=== PATIENT | female | born 1935 | race Caucasian/White ===

== ENCOUNTER 2016-07-05 14:48 | Observation (INO) | payer MEDICAID ==
[~2016-07-05] VITALS: Ht 170.2 cm; Wt 80.5 kg
[2016-07-05 14:50] VITALS: BP 179/86; PULSE 70; RESP 24; O2SAT 100
[2016-07-05] MEDS ORDERED: SODIUM CHLOR 0.9% 1000 ML INJ 1,000 ML IV SCH ×2 (15:05→18:15)
--- NOTE | 2016-07-05 15:05 | PD ---
HPI Chief Complaint: Abdominal Pain Time Seen by Provider: 15:05 Travel History International Travel<30 days: No Contact w/Intl Traveler<30days: No Traveled to known affect area: No History of Present Illness HPI 81-year-old female presented to emergency department with family for sudden onset generalized abdominal pain, cramping, nausea, and vomiting. Patient only speaks Turkmen but refuses computer college coach, and prefers to use family. Patient felt well yesterday but suddenly developed lower abdominal pain which is gradually worsened through the day. Patient has no history of abdominal surgery. She does state that she has a right sided femoral hernia which she's had for years. She does admit to burning with urination and frequency. Patient denies kidney stone history. She's had to bowel movements today, but denies diarrhea. Patient has nausea and vomiting 2. She denies chest pain, back pain, or upper respiratory symptoms. She has no known drug allergies. [facility] Social History Alcohol Use: Yes Tobacco Use: Yes Substance Use: No Allergies-Medications (Allergen,Severity, Reaction): Coded Allergies: No Known Allergies (Unverified , 07/05/16) Reported Meds & Prescriptions Reported Meds & Active Scripts Active No Active Prescriptions or Reported Medications Review of Systems ROS Limitations: Language Barrier General / Constitutional: Positive: Chills, No: Fever Eyes: No: Visual changes HENT: No: Headaches Cardiovascular: No: Chest Pain or Discomfort Respiratory: No: Shortness of Breath Gastrointestinal: Positive: Nausea, Vomiting, Abdominal Pain, Loss of Appetite (see history present illness) Genitourinary: Positive: Dysuria Musculoskeletal: No: Pain Skin: No Rash Neurologic: No: Weakness Psychiatric: No: Depression Endocrine: No: Polydipsia Hematologic/Lymphatic: No: Easy Bruising Physical Exam Narrative GENERAL: Patient is in moderate distress. SKIN: Warm and dry. Poor pallor. Normal turgor. HEAD: Atraumatic. Normocephalic. EYES: Pupils equal and round. No scleral icterus. No injection or drainage. ENT: No nasal bleeding or discharge. Mucous membranes pink and moist. Pharynx is normal. NECK: Trachea midline. No JVD. Supple and nontender. CARDIOVASCULAR: Regular rate and rhythm. RESPIRATORY: No accessory muscle use. Clear to auscultation. Breath sounds equal bilaterally. GASTROINTESTINAL: Abdomen soft, moderate diffuse tenderness in the lower suprapubic region, nondistended. Mild guarding. Positive peritoneal signs. Hepatic and splenic margins not palpable. I do not feel a double hernia on exam. MUSCULOSKELETAL: Extremities without clubbing, cyanosis, or edema. No obvious deformities. NEUROLOGICAL: Awake and alert. No obvious cranial nerve deficits. Motor grossly within normal limits. Five out of 5 muscle strength in the arms and legs. Normal speech. PSYCHIATRIC: Appropriate mood and affect; insight and judgment normal. Data Data Last Documented VS Vital Signs Date Time Temp Pulse Resp B/P Pulse Ox O2 Delivery O2 Flow Rate FiO2 07/05/16 16:10 98 Room Air 07/05/16 14:50 70 24 179/86 Orders Complete Blood Count With Diff (07/05/16 15:05) Comprehensive Metabolic Panel (07/05/16 15:05) Lipase (07/05/16 15:05) Lactic Acid (07/05/16 15:05) Prothrombin Time / Inr (Pt) (07/05/16 15:05) Act Partial Throm Time (Ptt) (07/05/16 15:05) Urinalysis - C+S If Indicated (07/05/16 15:05) Ct Abd/Pel W Iv Contrast(Rout) (07/05/16 15:05) Iv Access Insert/Monitor (07/05/16 15:05) Ecg Monitoring (07/05/16 15:05) Oximetry (07/05/16 15:05) NPO (07/05/16 15:05) Morphine Inj (Morphine Inj) (07/05/16 15:15) Ondansetron Inj (Zofran Inj) (07/05/16 15:15) Sodium Chlor 0.9% 1000 Ml Inj (Ns 1000 M (07/05/16 15:05) Sodium Chloride 0.9% Flush (Ns Flush) (07/05/16 15:15) Electrocardiogram (07/05/16 15:05) Cath For Specimen (07/05/16 15:05) Iohexol 350 Inj (Omnipaque 350 Inj) (07/05/16 17:17) Ondansetron Inj (Zofran Inj) (07/05/16 17:30) Hydromorphone Pf Inj (Dilaudid Pf Inj) (07/05/16 17:30) Morphine Inj (Morphine Inj) (07/05/16 18:00) Piperacil-Tazo 3.375 Gm Premix (Zosyn 3. (07/05/16 18:15) Sodium Chlor 0.9% 1000 Ml Inj (Ns 1000 M (07/05/16 18:15) Admit Order (Ed Use Only) (07/05/16 ) Labs Laboratory Tests Test 07/05/16 15:20 White Blood Count 9.7 TH/MM3 Red Blood Count 4.75 MIL/MM3 Hemoglobin 13.6 GM/DL Hematocrit 41.9 % Mean Corpuscular Volume 88.2 FL Mean Corpuscular Hemoglobin 28.7 PG Mean Corpuscular Hemoglobin 32.6 % Concent Red Cell Distribution Width 14.4 % Platelet Count 134 TH/MM3 Mean Platelet Volume 10.0 FL Neutrophils (%) (Auto) 91.0 % Lymphocytes (%) (Auto) 5.5 % Monocytes (%) (Auto) 3.2 % Eosinophils (%) (Auto) 0.1 % Basophils (%) (Auto) 0.2 % Neutrophils # (Auto) 8.8 TH/MM3 Lymphocytes # (Auto) 0.5 TH/MM3 Monocytes # (Auto) 0.3 TH/MM3 Eosinophils # (Auto) 0.0 TH/MM3 Basophils # (Auto) 0.0 TH/MM3 CBC Comment DIFF FINAL Differential Comment Prothrombin Time 10.7 SEC Prothromb Time International 1.0 RATIO Ratio Activated Partial 24.3 SEC Thromboplast Time Urine Color YELLOW Urine Turbidity CLEAR Urine pH 5.0 Urine Specific [place] 1.020 Urine Protein TRACE mg/dL Urine Glucose (UA) NEG mg/dL Urine Ketones 40 mg/dL Urine Occult Blood MOD Urine Nitrite NEG Urine Bilirubin NEG Urine Urobilinogen LESS THAN 2.0 MG/DL Urine Leukocyte Esterase SMALL Urine RBC 131 /hpf Urine WBC 4 /hpf Urine Squamous Epithelial 1 /hpf Cells Urine Mucus FEW /lpf Microscopic Urinalysis Comment CULT NOT INDICATED Sodium Level 142 MEQ/L Potassium Level 4.1 MEQ/L Chloride Level 107 MEQ/L Carbon Dioxide Level 24.2 MEQ/L Anion Gap 11 MEQ/L Blood Urea Nitrogen 30 MG/DL Creatinine 1.09 MG/DL Estimat Glomerular Filtration 48 ML/MIN Rate Random Glucose 161 MG/DL Lactic Acid Level 2.2 mmol/L Calcium Level 9.8 MG/DL Total Bilirubin 0.5 MG/DL Aspartate Amino Transf 17 U/L (AST/SGOT) Alanine Aminotransferase 19 U/L (ALT/SGPT) Alkaline Phosphatase 73 U/L Total Protein 7.7 GM/DL Albumin 4.6 GM/DL Lipase 145 U/L MDM Medical Decision Making Medical Screen Exam Complete: Yes Emergency Medical Condition: Yes Differential Diagnosis Abdominal pain. Nausea vomiting. Urinary tract infection. Renal colic. Appendicitis. Diverticulitis. Incarcerated hernia. Narrative Course Patient is in pain but medically stable at time of exam. Labs ordered including CBC, CMP, PT PTT and INR lactic acid, lipase, urinalysis IV access is obtained patient is given 4 mg Zofran as well as 4 mg morphine IV. Patient is ordered 1000 mL normal saline bolus. CT of the abdomen with IV contrast is ordered. Care the patient was assumed at [address] Garcia. Patient had elevated lactic acid, and was admitted. Please see his note. Admitting Information Admitting Physician Requests: Admit Scripts No Active Prescriptions or Reported Meds Condition: Stable Mohinder Trevino Jul 05, 2016 15:05
[2016-07-05] MEDS ORDERED: SODIUM CHLORIDE 0.9% FLUSH 10 ML FLUSH IV FLUSH PRN ×2 (15:15→18:30)
[2016-07-05] MEDS ORDERED: ONDANSETRON HCL 4 MG/2 ML VIAL IVP ONE (15:15)
[2016-07-05] MEDS ORDERED: MORPHINE SULFATE 4 MG/ML INJ IV PUSH ONE ×2 (15:15→18:00)
[2016-07-05 16:04] LABS: AUTOMATED NEUTROPHIL # 8.8 TH/MM3 (1.8-7.7); BASOPHIL % 0.2 % (0.0-2.0); EOSINOPHIL % 0.1 % (0.0-4.0); HEMATOCRIT 41.9 % (35.0-46.0); HEMO FLAGS DIFF FINAL; LYMPH % 5.5 % (9.0-44.0); LYMPHOCYTE # 0.5 TH/MM3 (1.0-4.8); MEAN CELL VOLUME 88.2 FL (80.0-100.0); MEAN CORPUSCULAR HEMOGLOBIN 28.7 PG (27.0-34.0); MEAN CORPUSCULAR HGB CONC 32.6 % (32.0-36.0); MONO % 3.2 % (0.0-8.0); PLATELET COUNT 134 TH/MM3 (150-450); RED BLOOD COUNT 4.75 MIL/MM3 (4.00-5.30); RED CELL DISTRIBUTION WIDTH 14.4 % (11.6-17.2); WHITE BLOOD COUNT 9.7 TH/MM3 (4.0-11.0)
[2016-07-05 16:07] LABS: BLOOD, URINE MOD (NEG); COMMENT (UR) CULT NOT INDICATED; CULTURE IF INDICATED CULT NOT INDICATED; GLUCOSE,URINE NEG (NEG); KETONE, URINE 40 mg/dL (NEG); MUCUS URINE FEW /lpf (OCC); NITRITE,URINE NEG (NEG); SQUAMOUS EPITHELIAL CELL URINE 1 /hpf (0-5); URINE COLOR YELLOW (YELLW/STRAW)
[2016-07-05 16:10] VITALS: O2SAT 98
[2016-07-05 16:13] LABS: APTT (PATIENT) 24.3 SEC (24.3-30.1); PROTHROMBIN TIME - PATIENT 10.7 SEC (9.8-11.6)
[2016-07-05 16:27] LABS: ALKALINE PHOSPHATASE 73 U/L (45-117); TOTAL BILIRUBIN ADULT 0.5 MG/DL (0.2-1.0)
[2016-07-05 16:37] LABS: ALT (GPT) 19 U/L (10-53); ANION GAP 11 MEQ/L (5-15); AST (GOT) 17 U/L (15-37); BICARBONATE 24.2 MEQ/L (21.0-32.0); BLOOD UREA NITROGEN 30 MG/DL (7-18); CHLORIDE 107 MEQ/L (98-107); GLOMERULAR FILTRATION RATE 48 ML/MIN (>89); POTASSIUM 4.1 MEQ/L (3.5-5.1); SODIUM (NA) 142 MEQ/L (136-145)
[2016-07-05] MEDS ORDERED: IOHEXOL 350 MG/ML 10 ML VIAL (for RAD DIAG) IV ONE (17:17)
[2016-07-05] MEDS ORDERED: ONDANSETRON HCL 4 MG/2 ML VIAL IV PUSH ONE (17:30)
[2016-07-05] MEDS ORDERED: HYDROmorphone HCL PF 1 MG/ML VIAL IV PUSH ONE (17:30)
--- NOTE | 2016-07-05 17:30 | RADRPT ---
EXAM DATE/TIME: 07/05/2016 17:14 [place] COMPARISON: No previous studies available for comparison. INDICATIONS : Abdomen pain. IV CONTRAST: 95 cc Omnipaque 350 (iohexol) IV ORAL CONTRAST: No oral contrast ingested. RADIATION DOSE: 9.96 CTDIvol (mGy) MEDICAL HISTORY : None SURGICAL HISTORY : None. ENCOUNTER: Initial ACUITY: 1 day PAIN SCALE: 5/10 LOCATION: Bilateral abdomen. TECHNIQUE: Volumetric scanning of the abdomen and pelvis was performed. Using automated exposure control and ad justment of the mA and/or kV according to patient size, radiation dose was kept as low as reasonably achievable to obtain optimal diagnostic quality images. FINDINGS: Abdomen CT: Approximately 1.3 cm stone is present in the right lower pole kidney. There are cysts in both kidneys some of which are parapelvic, however there is also some degree of pelvocaliectasis bilaterally diff icult to accurately assess due to presence of parapelvic cysts. The liver, spleen, pancreas, adrenals are unremarkable. There is no evidence for any appreciable pathological adenopathy, free fluid, or b owel obstruction. Chronic vascular calcifications are seen most likely due to the atherosclerotic ch anges involving the aorta, and iliac arteries without any significant aneurysmal dilatations for tech nique. Slight scarring and/or atelectasis is seen in bilateral visualized lungs. There is old fractur e of L1 transverse process. Pelvic CT: There is no evidence for mass, abscess formation, or any significant adenopathy within the pelvis. Th ere are gas bubbles inside the vagina possibly introduced from the outside. Total hip arthroplasty is seen on the left and there is an approximate 2.5 cm dense area in the region of the obturator international trade specialist us may be extruded cement. There is moderate amount of stool in the colon. There are degenerative olya nges and possible disc bulge involving lower lumbosacral spine mainly at L4-5 and L5-S1 not adequatel y characterized. There are numerous diverticuli within the colon mainly the sigmoid colon without sig ns of diverticulitis for technique. IMPRESSION: 1. Right lower pole renal stone. 2. There are cysts in both kidneys some of which are parapelvic and is also prominence of the renal p kimberly bilaterally of uncertain nature and chronicity difficult to accurately characterize due to pres ence of parapelvic cysts. 3. Colonic diverticuli and there is gas bubbles in the vagina possibly introduced from the outside. Ana Martinez MD on July 05, 2016 at 17:22 Board Certified Radiologist. This report was verified electronically.
--- NOTE | 2016-07-05 18:04 | EKG ---
Date Performed: 07/05/2016 Time Performed: 16:22:11 PTAGE: 81 years EKG: Sinus rhythm WITH FIRST DEGREE AV BLOCK WITH OCCASIONAL VENTRICULAR PREMATURE COMPLEXES ABNORMAL ECG COMPARED TO PRIOR ELECTROCARDIOGRAM, Probably no significant change although 2 leads on prior electrocardiogram h ad marked artifact and cannot be compared. PREVIOUS TRACING : 07/05/2016 16.13 DOCTOR: Rodolfo Willingham Interpretating Date/Time 07/07/2016 07:26:37
[2016-07-05] MEDS ORDERED: PIPERACIL-TAZO 3.375 GM PREMIX 50 ML IV ONE (18:15)
[2016-07-05] MEDS ORDERED: KETOROLAC TROMETHAMINE 60 MG/2 ML (IM) VIAL IM ONE (18:30)
[2016-07-05] MEDS ORDERED: MORPHINE SULFATE 4 MG/ML INJ IV PUSH PRN (18:30)
[2016-07-05] MEDS ORDERED: ACETAMINOPHEN 325 MG TAB PO PRN (18:30)
[2016-07-05] MEDS ORDERED: NALOXONE HCL 0.4 MG/ML AMP IV PRN (18:30)
[2016-07-05] MEDS ORDERED: ACETAMINOPHEN/HYDROcodone 325 MG/10 MG TAB PO PRN (18:30)
[2016-07-05] MEDS ORDERED: ACETAMINOPHEN/HYDROcodone 325 MG/5 MG TAB PO PRN (18:30)
[2016-07-05] MEDS ORDERED: ONDANSETRON HCL 4 MG/2 ML VIAL IVP PRN (18:30)
--- NOTE | 2016-07-05 18:34 | HHI.HP ---
[facility] No Primary Care Physician Admission Diagnosis abdominal pain Diagnoses: Chief Complaint: abdominal pain Travel History International Travel<30 Days: No Contact w/Intl Traveler <30 Da: No Traveled to Known Affected Are: No History of Present Illness This is an 81-year-old female with no past medical history who presented with abdominal pain since midnight. Patient speaks Malay and her daughter wishes to translate for patient. Patient stated that last night she started to have lower abdominal pain that happened at midnight. She stated pain at that time was mild and at that moment was intermittent and resolved on its all but then would come back. She stated that it worsened this morning at 9 a.m. in which she had a good emergency department. Patient stated that she did have nausea and vomiting in which she was vomiting food. Denied any diarrhea or constipation. Patient stated that the pain starts from the lower back and radiates down her left groin area. She denies any dysuria, hematuria, polyuria or nocturia. Patient also denies any fevers or chills. Patient stated prior to this episode she has been very healthy. Review of Systems Constitutional: DENIES: Diaphoretic episodes, Fatigue, Fever, Weight gain, Weight loss, Chills, Dizziness, Change in appetite, Night Sweats Endocrine: DENIES: Abnorml menstrual pattern, Heat/cold intolerance, Polydipsia , Polyuria, Polyphagia Eyes: DENIES: Blurred vision, Diplopia, Eye inflammation, Eye pain, Vision loss , Photosensitivity, Double Vision Ears, nose, mouth, throat: DENIES: Tinnitus, Hearing loss, Vertigo, Nasal discharge, Oral lesions, Throat pain, Hoarseness, Ear Pain, Running Nose, Epistaxis, Sinus Pain, Toothache, Odynophagia Respiratory: DENIES: Apneas, Cough, Snoring, Wheezing, Hemoptysis, Sputum production, Shortness of breath Cardiovascular: DENIES: Chest pain, Palpitations, Syncope, Dyspnea on Exertion , PND, Lower Extremity Edema, Orthopnea, Claudication Gastrointestinal: COMPLAINS OF: Abdominal pain, Nausea, Vomiting, DENIES: Black stools, Bloody stools, Constipation, Diarrhea, Difficulty Swallowing, Anorexia Genitourinary: DENIES: Abnormal vaginal bleeding, Dysmenorrhea, Dyspareunia, Sexual dysfunction, Urinary frequency, Urinary incontinence, Urgency, Hematuria , Dysuria, Nocturia, Vaginal discharge Musculoskeletal: DENIES: Joint pain, Muscle aches, Stiffness, Joint Swelling, Back pain, Neck pain Integumentary: DENIES: Abnormal pigmentation, Pruritus, Rash, Nail changes, Breast masses, Breast skin changes, Nipple discharge Hematologic/lymphatic: DENIES: Bruising, Lymphadenopathy Immunologic/allergic: DENIES: Eczema, Urticaria Neurologic: DENIES: Abnormal gait, Headache, Localized weakness, Paresthesias, Seizures, Speech Problems, Tremor, Poor Balance Psychiatric: DENIES: Anxiety, Confusion, Mood changes, Depression, Hallucinations, Agitation, Suicidal Ideation, Homicidal Ideation, Delusions Past Family Social History Past Medical History Deny any past medical history. Past Surgical History Left hip replacement. Reported Medications Patient is not on any home medication. Allergies: Coded Allergies: No Known Allergies (Unverified , 07/05/16) Active Ordered Medications Current Medications Morphine Sulfate (Morphine Inj) 4 mg ONCE ONCE IV PUSH Last administered on 15:30; Start 07/05/16 at 15:15; Stop 07/05/16 at 15:16; Status DC Ondansetron HCl 4 mg 4 mg ONCE ONCE IVP Last administered on 07/05/16 15:30; Start 07/05/16 at 15:15; Stop 07/05/16 at 15:16; Status DC Sodium Chloride (NS 1000 ml Inj) 1,000 ml @ 1,000 mls/hr Q1H IV Last administered on 07/05/16 15:29; Start 07/05/16 at 15:05; Stop 07/05/16 at 16:04 ; Status DC Sodium Chloride (NS Flush) 2 ml UNSCH PRN IV FLUSH FLUSH AFTER USING IV ACCESS ; Start 07/05/16 at 15:15 Iohexol (Omnipaque 350 Inj) 100 ml STK-MED ONCE IV Last administered on 17:17; Start 07/05/16 at 17:17; Stop 07/05/16 at 17:18; Status DC Ondansetron HCl (Zofran Inj) 4 mg ONCE ONCE IV PUSH Last administered on t 17:28; Start 07/05/16 at 17:30; Stop 07/05/16 at 17:31; Status DC Hydromorphone HCl (Dilaudid Pf Inj) 1 mg ONCE ONCE IV PUSH Last administered on 07/05/16t 17:29; Start 07/05/16 at 17:30; Stop 07/05/16 at 17:31; Status DC Morphine Sulfate 4 mg 4 mg ONCE ONCE IV PUSH ; Start 07/05/16 at 18:00; Stop at 18:01; Status DC Piperacillin Sod/ Tazobactam Sod 50 ml @ 100 mls/hr ONCE ONCE IV ; Start 07/05 at 18:15; Stop 07/05/16 at 18:44 Sodium Chloride (NS 1000 ml Inj) 1,000 ml @ 125 mls/hr Q8H IV ; Start 07/05/16 at 18:15 Family History Multiple family members from volvulus of the colon otherwise they are healthy. Social History Patient was at home with her . Denying tobacco, alcohol, or illicit drug use. Physical Exam Vital Signs Vital Signs Date Time Temp Pulse Resp B/P Pulse Ox O2 Delivery O2 Flow Rate FiO2 07/05/16 16:10 98 Room Air 07/05/16 14:50 70 24 179/86 100 Room Air Physical Exam GENERAL: This is a well-nourished, well-developed patient, in no apparent distress. SKIN: No rashes, ecchymoses or lesions. Cool and dry. HEAD: Atraumatic. Normocephalic. No temporal or scalp tenderness. EYES: Pupils equal round and reactive. Extraocular motions intact. No scleral icterus. No injection or drainage. ENT: Nose without bleeding, purulent drainage or septal hematoma. Throat without erythema, tonsillar hypertrophy or exudate. Uvula midline. Airway patent. NECK: Trachea midline. No JVD or lymphadenopathy. Supple, nontender, no meningeal signs. CARDIOVASCULAR: Regular rate and rhythm without murmurs, gallops, or rubs. RESPIRATORY: Clear to auscultation. Breath sounds equal bilaterally. No wheezes , rales, or rhonchi. GASTROINTESTINAL: Abdominal soft and nondistended. Tenderness palpation of lower abdominal area along with left CVA tenderness. MUSCULOSKELETAL: Extremities without clubbing, cyanosis, or edema. No joint tenderness, effusion, or edema noted. No calf tenderness. Negative Homans sign bilaterally. Positive paraspinal muscle spasm the lower back. NEUROLOGICAL: Awake and alert. Cranial nerves II through XII intact. Motor and sensory grossly within normal limits. Five out of 5 muscle strength in all muscle groups. Normal speech. Laboratory Laboratory Tests Test 07/05/16 15:20 White Blood Count 9.7 Red Blood Count 4.75 Hemoglobin 13.6 Hematocrit 41.9 Mean Corpuscular Volume 88.2 Mean Corpuscular Hemoglobin 28.7 Mean Corpuscular Hemoglobin 32.6 Concent Red Cell Distribution Width 14.4 Platelet Count 134 Mean Platelet Volume 10.0 Neutrophils (%) (Auto) 91.0 Lymphocytes (%) (Auto) 5.5 Monocytes (%) (Auto) 3.2 Eosinophils (%) (Auto) 0.1 Basophils (%) (Auto) 0.2 Neutrophils # (Auto) 8.8 Lymphocytes # (Auto) 0.5 Monocytes # (Auto) 0.3 Eosinophils # (Auto) 0.0 Basophils # (Auto) 0.0 CBC Comment DIFF FINAL Differential Comment Prothrombin Time 10.7 Prothromb Time International 1.0 Ratio Activated Partial 24.3 Thromboplast Time Urine Color YELLOW Urine Turbidity CLEAR Urine pH 5.0 Urine Specific [place] 1.020 Urine Protein TRACE Urine Glucose (UA) NEG Urine Ketones 40 Urine Occult Blood MOD Urine Nitrite NEG Urine Bilirubin NEG Urine Urobilinogen LESS THAN 2.0 Urine Leukocyte Esterase SMALL Urine RBC 131 Urine WBC 4 Urine Squamous Epithelial 1 Cells Urine Mucus FEW Microscopic Urinalysis Comment CULT NOT INDICATED Sodium Level 142 Potassium Level 4.1 Chloride Level 107 Carbon Dioxide Level 24.2 Anion Gap 11 Blood Urea Nitrogen 30 Creatinine 1.09 Estimat Glomerular Filtration 48 Rate Random Glucose 161 Lactic Acid Level 2.2 Calcium Level 9.8 Total Bilirubin 0.5 Aspartate Amino Transf 17 (AST/SGOT) Alanine Aminotransferase 19 (ALT/SGPT) Alkaline Phosphatase 73 Total Protein 7.7 Albumin 4.6 Lipase 145 Result Diagram: 07/05/16 1520 07/05/16 1520 Assessment and Plan Assessment and Plan Abdominal pain -CT scan showed kidney stone the right lower pole measuring 1.3 cm and bilateral kidney cysts. Otherwise negative. -Patient urine positive for microhematuria. -Pain may be due to a passed kidney stone. -Will monitor patient in the hospital since pain is uncontrolled. Will give IV fluids, pain control with [place] or morphine, given a dose of Toradol. -Continue to monitor clinically. Microhematuria -Most likely due to a passed kidney stone. -Will treat empirically for cystitis with Bactrim. -Patient will need UA repeated to determine if she needs a cystoscopy. Mild renal insufficiency -Patient does not have a baseline creatinine. -Will give IV fluids since patient did have emesis. Monitor creatinine and ins and outs. DVT prophylaxis -Low risk -SCDs. Discussed Condition With patient and her daughter Jamaica Ames MD Jul 05, 2016 18:34
[2016-07-05] MEDS ORDERED: KETOROLAC TROMETHAMINE 30 MG/ML (IVP) VIAL IV PUSH ONE (18:45)
--- NOTE | 2016-07-05 19:22 | PD ---
Data Data Last Documented VS Vital Signs Date Time Temp Pulse Resp B/P Pulse Ox O2 Delivery O2 Flow Rate FiO2 07/05/16 16:10 98 Room Air 07/05/16 14:50 70 24 179/86 Orders Complete Blood Count With Diff (07/05/16 15:05) Comprehensive Metabolic Panel (07/05/16 15:05) Lipase (07/05/16 15:05) Lactic Acid (07/05/16 15:05) Prothrombin Time / Inr (Pt) (07/05/16 15:05) Act Partial Throm Time (Ptt) (07/05/16 15:05) Urinalysis - C+S If Indicated (07/05/16 15:05) Ct Abd/Pel W Iv Contrast(Rout) (07/05/16 15:05) Iv Access Insert/Monitor (07/05/16 15:05) Ecg Monitoring (07/05/16 15:05) Oximetry (07/05/16 15:05) NPO (07/05/16 15:05) Morphine Inj (Morphine Inj) (07/05/16 15:15) Ondansetron Inj (Zofran Inj) (07/05/16 15:15) Sodium Chlor 0.9% 1000 Ml Inj (Ns 1000 M (07/05/16 15:05) Sodium Chloride 0.9% Flush (Ns Flush) (07/05/16 15:15) Electrocardiogram (07/05/16 15:05) Cath For Specimen (07/05/16 15:05) Iohexol 350 Inj (Omnipaque 350 Inj) (07/05/16 17:17) Ondansetron Inj (Zofran Inj) (07/05/16 17:30) Hydromorphone Pf Inj (Dilaudid Pf Inj) (07/05/16 17:30) Morphine Inj (Morphine Inj) (07/05/16 18:00) Piperacil-Tazo 3.375 Gm Premix (Zosyn 3. (07/05/16 18:15) Sodium Chlor 0.9% 1000 Ml Inj (Ns 1000 M (07/05/16 18:15) Admit Order (Ed Use Only) (07/05/16 ) Labs Laboratory Tests Test 07/05/16 15:20 White Blood Count 9.7 TH/MM3 Red Blood Count 4.75 MIL/MM3 Hemoglobin 13.6 GM/DL Hematocrit 41.9 % Mean Corpuscular Volume 88.2 FL Mean Corpuscular Hemoglobin 28.7 PG Mean Corpuscular Hemoglobin 32.6 % Concent Red Cell Distribution Width 14.4 % Platelet Count 134 TH/MM3 Mean Platelet Volume 10.0 FL Neutrophils (%) (Auto) 91.0 % Lymphocytes (%) (Auto) 5.5 % Monocytes (%) (Auto) 3.2 % Eosinophils (%) (Auto) 0.1 % Basophils (%) (Auto) 0.2 % Neutrophils # (Auto) 8.8 TH/MM3 Lymphocytes # (Auto) 0.5 TH/MM3 Monocytes # (Auto) 0.3 TH/MM3 Eosinophils # (Auto) 0.0 TH/MM3 Basophils # (Auto) 0.0 TH/MM3 CBC Comment DIFF FINAL Differential Comment Prothrombin Time 10.7 SEC Prothromb Time International 1.0 RATIO Ratio Activated Partial 24.3 SEC Thromboplast Time Urine Color YELLOW Urine Turbidity CLEAR Urine pH 5.0 Urine Specific [place] 1.020 Urine Protein TRACE mg/dL Urine Glucose (UA) NEG mg/dL Urine Ketones 40 mg/dL Urine Occult Blood MOD Urine Nitrite NEG Urine Bilirubin NEG Urine Urobilinogen LESS THAN 2.0 MG/DL Urine Leukocyte Esterase SMALL Urine RBC 131 /hpf Urine WBC 4 /hpf Urine Squamous Epithelial 1 /hpf Cells Urine Mucus FEW /lpf Microscopic Urinalysis Comment CULT NOT INDICATED Sodium Level 142 MEQ/L Potassium Level 4.1 MEQ/L Chloride Level 107 MEQ/L Carbon Dioxide Level 24.2 MEQ/L Anion Gap 11 MEQ/L Blood Urea Nitrogen 30 MG/DL Creatinine 1.09 MG/DL Estimat Glomerular Filtration 48 ML/MIN Rate Random Glucose 161 MG/DL Lactic Acid Level 2.2 mmol/L Calcium Level 9.8 MG/DL Total Bilirubin 0.5 MG/DL Aspartate Amino Transf 17 U/L (AST/SGOT) Alanine Aminotransferase 19 U/L (ALT/SGPT) Alkaline Phosphatase 73 U/L Total Protein 7.7 GM/DL Albumin 4.6 GM/DL Lipase 145 U/L MDM Supervised Visit with [place]: Yes Narrative Course The history, exam, and medical decision-making in the associated mid-level provider note were completed with my assistance. I reviewed and agree with the findings presented. I attest that I had a [id number] encounter with the patient on the same day, and personally performed and documented my assessment and findings in the medical record. *My assessment and Findings: Send 81-year-old woman, otherwise pretty healthy, presents emergency Department the abrupt onset of lower abdominal discomfort, a little bit worse on the left than the right. She's never had previous similar symptoms. She is a little bit of nausea and vomiting with it. No apparent change in her bowel movements. She looks very uncomfortable. She has some generalized tenderness in the lower abdomen. Studies reveal mildly elevated lactate, some blood in the urine. CT scan shows some kidney stones but no ureterolithiasis. There is some hydronephrosis bilaterally which is unusual. There is no clear evidence for exact source of her pain. Daughter reports multiple family members have from sigmoid volvulus. Don't see any volvulus at this time. Nonetheless, given her age, and high risk for having occult surgical conditions, that the patient to the hospital for monitoring and further evaluation. Scripts No Active Prescriptions or Reported Meds Condition: Dio Mohr MD Jul 05, 2016 19:22
[2016-07-05] MEDS: SODIUM CHLOR 0.9% 1000 ML INJ 1,000 ML IV SCH (19:38)
[2016-07-05 20:05] VITALS: BP 156/90; PULSE 90; RESP 16; O2SAT 95
--- NOTE | 2016-07-05 20:07 | RADRPT ---
EXAM DATE/TIME: 07/05/2016 18:39 [place] COMPARISON: CT ABDOMEN & PELVIS W CONTRAST, July 05, 2016, 17:14. INDICATIONS : Flank pain. MEDICAL HISTORY : Nausea. Vomiting. Flank pain. SURGICAL HISTORY : None. ENCOUNTER: Initial ACUITY: 1 day PAIN SCORE: 9/10 LOCATION: Bilateral flank MEASUREMENTS: RIGHT KIDNEY: 10.6 x 5.0 x 5.2 cm LEFT KIDNEY: 11.9 x 6.2 x 6.2 cm FINDINGS: There is mild bilateral hydronephrosis, etiology uncertain but the CT would suggest the possibility o f chronic UPJ obstruction on the right. I believe the obstruction on the left is acute as there is a heterogeneous nephrogram on the CT and perinephric edema evident on this ultrasound. The left ureter appears mildly distended as well. No clear stone is seen on either the ultrasound or CT. A large nono bstructing stone is seen of the right lower pole, measures about 13 x 15 x 9 mm in size. There is als o a nonobstructing right mid zone stone that measures 5 x 4 x 3 mm. Incidentally seen 14 x 12 x 13 mm benign-appearing cyst of the left lower pole. Urinary bladder has a normal ultrasound appearance. CONCLUSION: 1. Bilateral hydronephrosis of unclear etiology. This ultrasound and today's CT would suggest acute/a ctive obstruction of the left kidney, possibly at the level of the distal ureter or UVJ. No definite stone. Further evaluation with cystoscopy recommended to evaluate for a possible urothelial lesion of the bladder or UVJ. 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 2. Nonobstructing stones of the right kidney. 3. Ultrasound appearance of the urinary bladder within normal limits. Wayne Quinones MD on July 05, 2016 at 19:55 Board Certified Radiologist. This report was verified electronically.
[2016-07-05] MEDS: SULFAMETHOXAZOLE-TRIMETHOPRIM DS 800-160 MG TAB PO SCH (20:56)
[2016-07-05] MEDS: CYCLOBENZAPRINE HCL 10 MG TAB PO SCH (20:57)
[2016-07-05] MEDS: SODIUM CHLORIDE 0.9% FLUSH 10 ML FLUSH IV FLUSH SCH (21:59)
[2016-07-05 23:59] VITALS: BP 121/58; PULSE 65; RESP 18; TEMP 97.8; O2SAT 92
[2016-07-06] MEDS: SODIUM CHLOR 0.9% 1000 ML INJ 1,000 ML IV SCH ×2 (02:07→11:07)
[2016-07-06 05:42] VITALS: BP 105/52; PULSE 75; RESP 18; TEMP 98.5; O2SAT 94
[2016-07-06] MEDS: CYCLOBENZAPRINE HCL 10 MG TAB PO SCH ×2 (05:45→14:11)
[2016-07-06 07:22] LABS: HEMATOCRIT 36.5 % (35.0-46.0); MEAN CELL VOLUME 87.6 FL (80.0-100.0); MEAN CORPUSCULAR HEMOGLOBIN 28.3 PG (27.0-34.0); MEAN CORPUSCULAR HGB CONC 32.3 % (32.0-36.0); PLATELET COUNT 128 TH/MM3 (150-450); RED BLOOD COUNT 4.17 MIL/MM3 (4.00-5.30); RED CELL DISTRIBUTION WIDTH 13.8 % (11.6-17.2); REVIEW FLAG FINAL; WHITE BLOOD COUNT 7.6 TH/MM3 (4.0-11.0)
[2016-07-06 07:53] VITALS: BP 116/46; PULSE 63; RESP 16; TEMP 98.7; O2SAT 93
[2016-07-06 07:58] LABS: BICARBONATE 23.1 MEQ/L (21.0-32.0); POTASSIUM 3.4 MEQ/L (3.5-5.1)
[2016-07-06] MEDS: SODIUM CHLORIDE 0.9% FLUSH 10 ML FLUSH IV FLUSH SCH (08:33)
[2016-07-06] MEDS: SULFAMETHOXAZOLE-TRIMETHOPRIM DS 800-160 MG TAB PO SCH (08:33)
[2016-07-06 11:57] VITALS: BP 117/61; PULSE 65; RESP 18; TEMP 98.8; O2SAT 94
--- NOTE | 2016-07-06 13:28 | PD.CONS ---
HPI Service Urology Consult Requested By Reason for Consult Abdominal pain with abnormal CT findings Primary Care Physician No Primary Care Physician Diagnosis: History of Present Illness 81-year-old female who presented to the emergency room with acute onset abdominal pain more prominent on her left side with associated nausea and vomiting. Workup included both a renal ultrasound and CT scan with findings consistent with a nonobstructing right lower pole renal calculus measuring 1.3 cm and fullness to the left collecting system and ureter consistent with passing of a left ureteral calculus. No definitive ureteral stone was clearly seen however there were several calcifications along the expected course of the distal ureter. Urinalysis demonstrated the presence of a large amount of red blood cells again consistent with ureterolithiasis. I was unable to clearly obtain any history from the patient as she does not speak Brazilian and most of the information was obtained upon review of the medical record and physical exam. There is no apparent prior history of nephrolithiasis. Review of Systems ROS Limitations: Language Barrier Past Family Social History Past Medical History No significant prior past medical history Past Surgical History Status post left hip replacement surgery Reported Medications Refer to EMR Allergies: Coded Allergies: No Known Allergies (Unverified , 07/05/16) Active Ordered Medications Refer to EMR Family History Reviewed and noncontributory Social History No history tobacco, alcohol or intravenous drug abuse Physical Exam Vital Signs Date Time Temp Pulse Resp B/P Pulse Ox O2 Delivery O2 Flow Rate FiO2 07/06/16 11:57 98.8 65 18 117/61 94 07/06/16 07:53 98.7 63 16 116/46 93 07/06/16 05:42 98.5 75 18 105/52 94 07/05/16 23:59 97.8 65 18 121/58 92 07/05/16 20:05 90 16 156/90 95 07/05/16 16:10 98 Room Air 07/05/16 14:50 70 24 179/86 100 Room Air Physical Exam GENERAL: This is a well-nourished, well-developed patient, in no apparent distress. SKIN: No rashes, ecchymoses or lesions. Cool and dry. HEAD: Atraumatic. Normocephalic. No temporal or scalp tenderness. EYES: Pupils equal round and reactive. Extraocular motions intact. No scleral icterus. No injection or drainage. ENT: Nose without bleeding, purulent drainage or septal hematoma. Throat without erythema, tonsillar hypertrophy or exudate. Uvula midline. Airway patent. NECK: Trachea midline. No JVD or lymphadenopathy. Supple, nontender, no meningeal signs. CARDIOVASCULAR: Regular rate and rhythm without murmurs, gallops, or rubs. RESPIRATORY: Clear to auscultation. Breath sounds equal bilaterally. No wheezes , rales, or rhonchi. GASTROINTESTINAL: Abdomen soft, non-tender, nondistended. No hepato-splenomegaly , or palpable masses. No guarding. GENITOURINARY: MUSCULOSKELETAL: Extremities without clubbing, cyanosis, or edema. No joint tenderness, effusion, or edema noted. No calf tenderness. Negative Homans sign bilaterally. NEUROLOGICAL: Awake and alert. Cranial nerves II through XII intact. Motor and sensory grossly within normal limits. Five out of 5 muscle strength in all muscle groups. Normal speech. Lab results reviewed: Yes Laboratory Tests Test 07/05/16 07/06/16 15:20 06:41 White Blood Count 9.7 7.6 Red Blood Count 4.75 4.17 Hemoglobin 13.6 11.8 Hematocrit 41.9 36.5 Mean Corpuscular Volume 88.2 87.6 Mean Corpuscular Hemoglobin 28.7 28.3 Mean Corpuscular Hemoglobin 32.6 32.3 Concent Red Cell Distribution Width 14.4 13.8 Platelet Count 134 128 Mean Platelet Volume 10.0 10.1 Neutrophils (%) (Auto) 91.0 Lymphocytes (%) (Auto) 5.5 Monocytes (%) (Auto) 3.2 Eosinophils (%) (Auto) 0.1 Basophils (%) (Auto) 0.2 Neutrophils # (Auto) 8.8 Lymphocytes # (Auto) 0.5 Monocytes # (Auto) 0.3 Eosinophils # (Auto) 0.0 Basophils # (Auto) 0.0 CBC Comment DIFF FINAL Differential Comment Prothrombin Time 10.7 Prothromb Time International 1.0 Ratio Activated Partial 24.3 Thromboplast Time Urine Color YELLOW Urine Turbidity CLEAR Urine pH 5.0 Urine Specific [place] 1.020 Urine Protein TRACE Urine Glucose (UA) NEG Urine Ketones 40 Urine Occult Blood MOD Urine Nitrite NEG Urine Bilirubin NEG Urine Urobilinogen LESS THAN 2.0 Urine Leukocyte Esterase SMALL Urine RBC 131 Urine WBC 4 Urine Squamous Epithelial 1 Cells Urine Mucus FEW Microscopic Urinalysis Comment CULT NOT INDICATED Sodium Level 142 142 Potassium Level 4.1 3.4 Chloride Level 107 110 Carbon Dioxide Level 24.2 23.1 Anion Gap 11 9 Blood Urea Nitrogen 30 23 Creatinine 1.09 0.96 Estimat Glomerular Filtration 48 56 Rate Random Glucose 161 93 Lactic Acid Level 2.2 Calcium Level 9.8 8.2 Total Bilirubin 0.5 Aspartate Amino Transf 17 (AST/SGOT) Alanine Aminotransferase 19 (ALT/SGPT) Alkaline Phosphatase 73 Total Protein 7.7 Albumin 4.6 Lipase 145 Date/Time Procedure Status Source Growth 07/05/16 15:20 Urine Culture Received Urine Clean Catch Pending Result Diagram: 07/06/16 0641 07/06/[address] scan with findings as outlined above. Last Impressions Renal Ultrasound 07/05/16 0000 Signed Impressions: Service Date/Time: Tuesday, July 05, 2016 18:39 - CONCLUSION: 1. Bilateral hydronephrosis of unclear etiology. This ultrasound and today's CT would suggest acute/active obstruction of the left kidney, possibly at the level of the distal ureter or UVJ. No definite stone. Further evaluation with cystoscopy recommended to evaluate for a possible urothelial lesion of the bladder or UVJ. 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 2. Nonobstructing stones of the right kidney. 3. Ultrasound appearance of the urinary bladder within normal limits. Wayne Quinones MD Assessment and Plan Assessment and Plan Urologic impression: #1 abdominal pain most likely related to a left ureteral calculus which is in the process of passing or has already passed. #2 nonobstructing 1.3 cm right lower pole renal calculus Recommendations: #1 strain all urine #2 continue with analgesic support #3 urologically cleared to discharge home when pain managed with oral medication #4 office follow up in 7-10 days [phone] Jam Desir MD Jul 06, 2016 13:28
--- NOTE | 2016-07-06 15:49 | HHI.DS ---
Discharge Summary Admission Date Jul 05, 2016 at 18:12 Discharge Date: Jul 06, 2016 Admitting Diagnosis abdominal pain (1) Left ureteral calculus ICD Code: N20.1 Diagnosis: Principal (2) Kidney stone ICD Code: N20.0 Diagnosis: Secondary (3) Hydronephrosis determined by ultrasound ICD Code: N13.30 Diagnosis: Principal (4) Microhematuria ICD Code: R31.29 Diagnosis: Principal (5) Abdominal pain ICD Code: R10.9 Diagnosis: Principal (6) Renal insufficiency ICD Code: N28.9 Diagnosis: Principal Procedures none Brief History - From Admission This is an 81-year-old female with no past medical history who presented with abdominal pain since midnight. Patient speaks Malay and her daughter wishes to translate for patient. Patient stated that last night she started to have lower abdominal pain that happened at midnight. She stated pain at that time was mild and at that moment was intermittent and resolved on its all but then would come back. She stated that it worsened this morning at 9 a.m. in which she had a good emergency department. Patient stated that she did have nausea and vomiting in which she was vomiting food. Denied any diarrhea or constipation. Patient stated that the pain starts from the lower back and radiates down her left groin area. She denies any dysuria, hematuria, polyuria or nocturia. Patient also denies any fevers or chills. Patient stated prior to this episode she has been very healthy. CBC/BMP: 07/06/16 0641 07/06/16 0641 Significant Findings Laboratory Tests Test 07/05/16 07/06/16 15:20 06:41 Platelet Count 134 TH/MM3 128 TH/MM3 (150-450) (150-450) Neutrophils (%) (Auto) 91.0 % (16.0-70.0) Lymphocytes (%) (Auto) 5.5 % (9.0-44.0) Neutrophils # (Auto) 8.8 TH/MM3 (1.8-7.7) Lymphocytes # (Auto) 0.5 TH/MM3 (1.0-4.8) Urine Ketones 40 mg/dL (NEG) Urine Occult Blood MOD (NEG) Urine Leukocyte Esterase SMALL (NEG) Urine RBC 131 /hpf (0-3) Urine Mucus FEW /lpf (OCC) Blood Urea Nitrogen 30 MG/DL (7-18) 23 MG/DL (7-18) Creatinine 1.09 MG/DL (0.50-1.00) Estimat Glomerular Filtration 48 ML/MIN (>89) 56 ML/MIN (>89) Rate Random Glucose 161 MG/DL (74-106) Lactic Acid Level 2.2 mmol/L (0.4-2.0) Potassium Level 3.4 MEQ/L (3.5-5.1) Chloride Level 110 MEQ/L (98-107) Calcium Level 8.2 MG/DL (8.5-10.1) Imaging Last Impressions Renal Ultrasound 07/05/16 0000 Signed Impressions: Service Date/Time: Tuesday, July 05, 2016 18:39 - CONCLUSION: 1. Bilateral hydronephrosis of unclear etiology. This ultrasound and today's CT would suggest acute/active obstruction of the left kidney, possibly at the level of the distal ureter or UVJ. No definite stone. Further evaluation with cystoscopy recommended to evaluate for a possible urothelial lesion of the bladder or UVJ. 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 2. Nonobstructing stones of the right kidney. 3. Ultrasound appearance of the urinary bladder within normal limits. Wayne Quinones MD PE at Discharge GENERAL: in NAD CARDIOVASCULAR: Regular rate and rhythm without murmurs, gallops, or rubs. RESPIRATORY: Breath sounds equal bilaterally. No accessory muscle use. GASTROINTESTINAL: Abdomen soft, non-tender, nondistended. MUSCULOSKELETAL: No cyanosis, or edema. BACK: Nontender without obvious deformity. No CVA tenderness. Pt update on day of discharge f/u abdominal and CVA tenderness. patient stated pain resolved. she denied any N/V. Asking to go home. her friend is translating. she remains afebrile. Hospital Course Abdominal pain -CT scan showed kidney stone the right lower pole measuring 1.3 cm and bilateral kidney cysts. Otherwise negative. -Patient urine positive for microhematuria. -admitted for supportive care with IV fluids, pain control with [place] or morphine, which did not help so given toradol. -pain resolved next morning. -us done showing bilateral hydronephrosis of unclear etiology. This ultrasound and today's CT would suggest acute/active obstruction of the left kidney, possibly at the level of the distal ureter or UVJ. No definite stone -due to results urologist consulted and stated abdominal pain most likely related to a left ureteral calculus which is in the process of passing or has already passed. -recommendations: #1 strain all urine #2 continue with analgesic support #3 urologically cleared to discharge home when pain managed with oral medication #4 office follow up in 7-10 days [phone] Microhematuria -Most likely due to a passed kidney stone. -treated empirically for cystitis with Bactrim. but urine cultured negative so d /c. Mild renal insufficiency -most likely due to dehydration. -Patient does not have a baseline creatinine. -gave IVFs and it resolved. Pt Condition on Discharge: Good Discharge Disposition: Discharge Home Discharge Time: > 30 minutes Discharge Instructions DIET: Follow Instructions for: As Tolerated, No Restrictions Activities you can perform: Regular-No Restrictions Follow up Referrals: PCP Follow-up - 1 Week Urology - 1 Week with Jam Desir MD New Medications: Cyclobenzaprine (Flexeril) 10 Mg Tab 5 MG PO Q8HR PRN MUSCLE SPASM #15 Ref 0 TAB Hydrocodone-Acetaminophen (Hydrocodone-Acetaminophen) 5-325 mg Tab 1 TAB PO Q4H PRN pain #20 Ref 0 TAB [place] Ames MD Jul 06, 2016 15:49
--- NOTE | 2016-07-06 15:49 | HHI.DCPOC ---
Discharge Care Plan Diagnosis: (1) Kidney stone Goals to Promote Your Health * To prevent worsening of your condition and complications * To maintain your health at the optimal level Directions to Meet Your Goals Take your medications as prescribed Follow your dietary instruction Follow activity as directed Keep your appointments as scheduled Take your immunizations and boosters as scheduled If your symptoms worsen call your PCP, if no PCP go to Urgent Care Center or Emergency Room Smoking is Dangerous to Your Health. Avoid second hand smoke Call the 24-hour hour crisis hotline for domestic abuse at [place] Ames MD Jul 06, 2016 15:49
[2016-07-06] MEDS ORDERED: HYDR-3516 PO (15:51)
[2016-07-06] MEDS ORDERED: CYCL1TAB29 PO (15:51)
== END 2016-07-06 17:17 | disposition home or self-care (01) ==
LOC: NEPC 14:48 → NEDA 18:12 → INTOOBSV 18:12 → NEPHCDU 21:27
PROVIDERS: ADMIT Family Medicine; ATTEND Family Medicine
DX: N13.2 Hydronephrosis with renal and ureteral calculous obstruction (principal); N28.1 Cyst of kidney, acquired; R31.29 Other microscopic hematuria; N28.9 Disorder of kidney and ureter, unspecified; F17.200 Nicotine dependence, unspecified, uncomplicated; Z96.642 Presence of left artificial hip joint
CPT/HCPCS: 74177; 76775; 80048; 80053; 81001; 83605; 83690; 85025; 85027; 85610; 85730; 87086; 93005; 96361; 96374; 96375; 96376; 99285; G0378; J1170; J1885; J2270; J2405; J2543; J7030; P9612; Q9967